=== PATIENT | male | born 1970 | race Caucasian/White ===

== ENCOUNTER 2018-07-04 08:10 | Inpatient (IN) | payer BC ==
[~2018-07-04] VITALS: Ht 188 cm; Wt 105.2 kg
[2018-07-04 08:47] LABS: BASOPHILS % 0.6 % (0.0-2.0); EOSINOPHILS % 0.3 % (0.0-5.0); HEMATOCRIT. 52.9 % (42.0-52.0); HEMOGLOBIN. 18.9 g/dL (14.0-18.0); LYMPHOCYTES % 36.6 % (20.0-50.0); MEAN CORPUSCULAR HEMOGLOBIN 36.3 pg (28.0-32.0); MEAN CORPUSCULAR VOLUME 101.8 fL (80.0-94.0); MEAN PLATELET VOLUME 8.4 fl (7.4-10.4); MONOCYTES % 9.1 % (2.0-8.0); NEUTROPHILS % 53.4 % (40.0-76.0); PLATELET 95 x1000/uL (130-400); RED CELL DISTRIBUTION WIDTH 14.3 % (11.6-14.6)
[2018-07-04 08:52] LABS: CHLORIDE 99 mEq/L (98-107)
[2018-07-04 08:56] LABS: ETHANOL BLOOD < 10 mg/dL
[2018-07-04] MEDS ORDERED: ONDANSETRON HCL 4MG/2ML INJ IV ONE (09:15)
[2018-07-04 09:39] LABS: CLARITY URINE CLEAR (CLEAR); COLOR URINE DARK YELLOW (YELLOW); KETONES URINE 1+ (NEGATIVE); LEUKOCYTE ESTERASE URINE NEGATIVE (NEGATIVE); NITRITE URINE NEGATIVE (NEGATIVE); OCCULT BLOOD URINE NEGATIVE (NEGATIVE); PH URINE 5.5 (4.5-8.0); PROTEIN URINE NEGATIVE (NEGATIVE); SPECIFIC GRAVITY URINE 1.013 (1.005-1.030)
[2018-07-04] MEDS ORDERED: NITROGLYCERIN 0.4MG TABLET SL SL ONE (09:45)
[2018-07-04] MEDS ORDERED: ASPIRIN 81MG TABLET PO ONE (09:45)
[2018-07-04] MEDS ORDERED: CHLORDIAZEPOXIDE 25MG CAPSULE PO ONE (09:45)
[2018-07-04 09:57] LABS: *BARBITURATES SCREEN URINE NEGATIVE (NEGATIVE); *BENZODIAZEPINES SCREEN URINE NEGATIVE (NEGATIVE); *COCAINE SCREEN URINE NEGATIVE (NEGATIVE); PHENCYCLIDINE URINE SCREEN NEGATIVE (NEGATIVE)
[2018-07-04 09:58] LABS: *AMPHETAMINES SCREEN URINE NEGATIVE (NEGATIVE); CANNABINOID URINE SCREEN PRESUMTIVE POSITIVE (NEGATIVE)
[2018-07-04 09:59] LABS: OPIATES URINE SCREEN NEGATIVE (NEGATIVE)
[2018-07-04 10:01] LABS: METHADONE URINE SCREEN NEGATIVE (NEGATIVE)
[2018-07-04] MEDS ORDERED: NA PHOS,M-B/NA PHOS,DI-BA ENEMA 118ML PR PRN (11:00)
[2018-07-04] MEDS ORDERED: NITROGLYCERIN 0.4MG TABLET SL SL PRN (11:00)
[2018-07-04] MEDS ORDERED: DEXTROSE 50% WATER 50ML SYRINGE IV PRN (11:00)
[2018-07-04] MEDS ORDERED: CLONIDINE 0.1MG TABLET PO PRN (11:00)
[2018-07-04] MEDS ORDERED: DOCUSATE SODIUM 100MG CAPSULE PO PRN (11:00)
[2018-07-04] MEDS ORDERED: GUAIFENESIN 200MG/10ML SUGAR FREE UDC PO PRN (11:00)
[2018-07-04] MEDS ORDERED: ENOXAPARIN 40MG/0.4ML SYR SUBCUT SCH (11:00)
[2018-07-04] MEDS ORDERED: ZOLPIDEM TARTRATE 5MG TABLET PO PRN (11:00)
[2018-07-04] MEDS ORDERED: ACETAMINOPHEN 325MG TABLET PO PRN (11:00)
[2018-07-04] MEDS ORDERED: DIPHENHYDRAMINE 50MG/ML VIAL IV PRN (11:00)
[2018-07-04] MEDS ORDERED: MAGNESIUM/ALUMINUM HYDROXIDE/SIMETHICONE 30ML UDC PO PRN (11:00)
[2018-07-04] MEDS ORDERED: LORAZEPAM 0.5MG TABLET PO PRN (11:00)
[2018-07-04] MEDS ORDERED: IPRATROPIUM/ALBUTEROL 0.5-3(2.5)MG/3ML NEB INH PRN (11:00)
[2018-07-04] MEDS ORDERED: POTASSIUM CHLORIDE 20MEQ TABLET SR PO ONE (11:40)
[2018-07-04 11:48] LABS: FOLIC ACID (FOLATE) SERUM 3.5 ng/mL (>5.38)
[2018-07-04 12:00] VITALS: BP 134/81
[2018-07-04 12:04] VITALS: BP 134/81
[2018-07-04] MEDS: SUCRALFATE 1 G/10 ML UDC PO SCH ×3 (12:49→20:51)
[2018-07-04] MEDS: INSULIN LISPRO 100 UNITS/ML SUBCUT SCH ×3 (12:54→20:45)
[2018-07-04] MEDS: BLOOD SUGAR DIAGNOSTIC STRIP TEST SCH ×3 (12:54→20:45)
[2018-07-04] MEDS ORDERED: MVI, ADULT NO.1 10 ML, FOLIC ACID 1 MG, THIAMINE HCL 100 MG in SODIUM CHLORIDE 0.9% 1,0... IV NR ×4 (14:00)
[2018-07-04] MEDS ORDERED: MAGNESIUM 2 G PREMIX 50 ML IV NR (14:30)
[2018-07-04] MEDS: MORPHINE SULFATE 4 MG/ML CPJ (NOT FOR IM USE) IV PRN ×2 (15:28→20:53)
[2018-07-04] MEDS: ONDANSETRON HCL 4MG/2ML INJ IV PRN ×2 (15:28→20:51)
[2018-07-04 15:56] LABS: CREATINE KINASE 62 IU/L (39-308)
[2018-07-04 15:57] LABS: CREATINE KINASE MB FRACTION < 1.0 ng/mL (0.5-3.6)
[2018-07-04 16:00] VITALS: BP 121/74
[2018-07-04 20:00] VITALS: BP 116/69
[2018-07-04] MEDS: FAMOTIDINE 20MG TABLET PO SCH (20:52)
[2018-07-04] MEDS: METOPROLOL TARTRATE 25MG TABLET PO SCH (20:52)
[2018-07-05] VITALS: BP 118/78
[2018-07-05 00:06] LABS: CREATINE KINASE 58 IU/L (39-308); CREATINE KINASE MB FRACTION < 1.0 ng/mL (0.5-3.6)
[2018-07-05] MEDS: ONDANSETRON HCL 4MG/2ML INJ IV PRN ×2 (01:39→08:36)
[2018-07-05] MEDS: MORPHINE SULFATE 4 MG/ML CPJ (NOT FOR IM USE) IV PRN (01:40)
[2018-07-05 04:00] VITALS: BP 128/72
[2018-07-05] MEDS: TRAMADOL 50MG TABLET PO PRN ×3 (04:48→20:25)
[2018-07-05] MEDS: BLOOD SUGAR DIAGNOSTIC STRIP TEST SCH ×4 (04:55→21:00)
[2018-07-05 08:00] VITALS: BP_SYST 109; BP_SYST 159; BP_DIAS 70; BP_DIAS 81
[2018-07-05] MEDS: INSULIN LISPRO 100 UNITS/ML SUBCUT SCH ×4 (08:10→21:00)
[2018-07-05] MEDS: ASPIRIN 325MG EC TABLET PO SCH (08:36)
[2018-07-05] MEDS: FAMOTIDINE 20MG TABLET PO SCH ×2 (08:36→20:32)
[2018-07-05] MEDS: METOPROLOL TARTRATE 25MG TABLET PO SCH ×2 (08:37→20:24)
[2018-07-05] MEDS: SUCRALFATE 1 G/10 ML UDC PO SCH ×4 (08:39→20:25)
[2018-07-05] MEDS ORDERED: TAMSULOSIN HCL 0.4MG SR CAPSULE PO SCH (10:15)
[2018-07-05 11:22] LABS: CLARITY URINE CLEAR (CLEAR); COLOR URINE ORANGE (YELLOW); KETONES URINE 1+ (NEGATIVE); LEUKOCYTE ESTERASE URINE 1+ (NEGATIVE); NITRITE URINE POSITIVE (NEGATIVE); OCCULT BLOOD URINE NEGATIVE (NEGATIVE); PH URINE 6.5 (4.5-8.0); PROTEIN URINE NEGATIVE (NEGATIVE); SPECIFIC GRAVITY URINE 1.025 (1.005-1.030)
[2018-07-05] MEDS ORDERED: IOHEXOL-300 100 ML BOTTLE ONE (11:23)
[2018-07-05] MEDS: SODIUM CHLORIDE 0.9% 1,000 ML IV SCH ×2 (11:55→20:15)
[2018-07-05 12:00] VITALS: BP 106/67
[2018-07-05 13:27] LABS: BASOPHILS % 0.4 % (0.0-2.0); EOSINOPHILS % 0.3 % (0.0-5.0); HEMATOCRIT. 48.3 % (42.0-52.0); HEMOGLOBIN. 16.9 g/dL (14.0-18.0); LYMPHOCYTES % 25.7 % (20.0-50.0); MEAN CORPUSCULAR HEMOGLOBIN 35.8 pg (28.0-32.0); MEAN CORPUSCULAR VOLUME 102.4 fL (80.0-94.0); MONOCYTES % 10.7 % (2.0-8.0); NEUTROPHILS % 62.9 % (40.0-76.0); PLATELET 81 x1000/uL (130-400); RED BLOOD CELL COUNT 4.72 mill/uL (4.7-6.1); RED CELL DISTRIBUTION WIDTH 13.9 % (11.6-14.6)
[2018-07-05 13:43] LABS: CHLORIDE 102 mEq/L (98-107)
[2018-07-05 14:39] LABS: INR 1.4; PROTHROMBIN TIME 13.9 sec (9.1-11.1)
[2018-07-05 16:00] VITALS: BP 124/73
[2018-07-05] MEDS ORDERED: CEFTRIAXONE 1 G PREMIX 50 ML IV SCH (16:30)
[2018-07-05 20:00] VITALS: BP 177/81
[2018-07-06] VITALS: BP 98/62
[2018-07-06] MEDS: TRAMADOL 50MG TABLET PO PRN (02:23)
[2018-07-06 04:00] VITALS: BP 109/67
[2018-07-06] MEDS: SUCRALFATE 1 G/10 ML UDC PO SCH (06:15)
[2018-07-06] MEDS: SODIUM CHLORIDE 0.9% 1,000 ML IV SCH (06:18)
[2018-07-06] MEDS: BLOOD SUGAR DIAGNOSTIC STRIP TEST SCH (06:18)
[2018-07-06] MEDS: INSULIN LISPRO 100 UNITS/ML SUBCUT SCH (06:19)
[2018-07-06 08:00] VITALS: BP 131/89
[2018-07-06] MEDS: METOPROLOL TARTRATE 25MG TABLET PO SCH (08:34)
[2018-07-06] MEDS: ASPIRIN 325MG EC TABLET PO SCH (08:34)
[2018-07-06] MEDS: FAMOTIDINE 20MG TABLET PO SCH (08:34)
[2018-07-06] MEDS: MORPHINE SULFATE 4 MG/ML CPJ (NOT FOR IM USE) IV PRN (09:20)
[2018-07-06 11:03] VITALS: BP 123/81
== END 2018-07-06 12:30 | disposition home or self-care (01) | DRG 392 ==
LOC: ER 08:10 → 7WST 10:08 → ENRESERV 10:54 → EDBEDREQ 11:46
PROVIDERS: ADMIT Internal Medicine; ATTEND Internal Medicine
DX: K21.9 Gastro-esophageal reflux disease without esophagitis (principal); R17 Unspecified jaundice; N39.0 Urinary tract infection, site not specified; R07.89 Other chest pain; E87.6 Hypokalemia; R31.9 Hematuria, unspecified; K57.90 Diverticulosis of intestine, part unspecified, without perforation or abscess without bleeding; E11.9 Type 2 diabetes mellitus without complications; R74.0 Nonspecific elevation of levels of transaminase and lactic acid dehydrogenase [LDH]; E83.42 Hypomagnesemia; F12.10 Cannabis abuse, uncomplicated; F10.10 Alcohol abuse, uncomplicated; Z71.51 Drug abuse counseling and surveillance of drug abuser
CPT/HCPCS: 36415; 71045; 74178; 80053; 80061; 80305; 81003; 82550; 82553; 82607; 82746; 82962; 83036; 83540; 83550; 83735; 84484; 85025; 85610; 87086; 93005; 93306; 93970; 96374; 99285; G0482; J0696; J2270; J2405; J3411; J3475; J3490; J7030; Q9967